=== PATIENT | male | born 1950 | race Caucasian/White ===

== ENCOUNTER 2022-01-10 09:17 | Outpatient (CLI) | payer MEDICARE, OTHER ==
[2022-01-10 09:55] LABS: ALT ALANINE AMINOTRANSFERASE 24 IU/L (10-60); AST ASPARTATE AMINOTRANSFERASE 22 IU/L (10-42); CHOL/HDL RATIO 1.8 (<5.0); CHOLESTEROL 120 mg/dL; CK- CREATINE KINASE 72 IU/L (22-269); HDL CHOLESTEROL 68 mg/dL; LDL CHOLESTEROL,CALCULATED 40 mg/dL; LDL CHOLESTEROL,DIRECT 34 mg/dL; LDL/HDL RATIO 0.6 (<3.6); TRIGLYCERIDES 60 mg/dL; VLDL CHOLESTEROL 12 mg/dL
== END 2022-01-10 09:18 | disposition home or self-care (01) ==
LOC: LAB 09:17
PROVIDERS: ATTEND Internal Medicine Cardiovascular Disease
DX: E78.5 Hyperlipidemia, unspecified (principal)
CPT/HCPCS: 36415; 80061; 82550; 83721; 84450; 84460

== ENCOUNTER 2022-02-02 13:42 | Outpatient (CLI) | payer MEDICARE, OTHER ==
[2022-02-02 14:03] LABS: CALCIUM 9.5 mg/dL (8.5-10.3); CREATININE 1.1 mg/dL (0.6-1.2); POTASSIUM 4.5 mmol/L (3.5-5.0)
== END 2022-02-02 13:43 | disposition home or self-care (01) ==
LOC: LAB 13:42
PROVIDERS: ATTEND Internal Medicine Cardiovascular Disease
DX: I71.4 Abdominal aortic aneurysm, without rupture (principal); I25.10 Atherosclerotic heart disease of native coronary artery without angina pectoris; I10 Essential (primary) hypertension; E78.5 Hyperlipidemia, unspecified
CPT/HCPCS: 36415; 80048

== ENCOUNTER 2022-07-07 10:12 | Outpatient (CLI) | payer MEDICARE, OTHER ==
[2022-07-07 10:43] LABS: ALBUMIN 4.7 g/dL (3.2-5.5); ALKALINE PHOSPHATASE 61 IU/L (42-121); ALT ALANINE AMINOTRANSFERASE 28 IU/L (10-60); AST ASPARTATE AMINOTRANSFERASE 32 IU/L (10-42); BILIRUBIN,DIRECT 0.2 mg/dL (0.1-0.5); BILIRUBIN,TOTAL 1.2 mg/dL (0.2-1.0); CHOL/HDL RATIO 1.7 (<5.0); CHOLESTEROL 137 mg/dL; HDL CHOLESTEROL 79 mg/dL; LDL CHOLESTEROL,CALCULATED 45 mg/dL; LDL/HDL RATIO 0.6 (<3.6); TOTAL PROTEIN 7.6 g/dL (6.7-8.2); TRIGLYCERIDES 65 mg/dL; VLDL CHOLESTEROL 13 mg/dL
== END 2022-07-07 10:13 | disposition home or self-care (01) ==
LOC: LAB 10:12
PROVIDERS: ATTEND Family Medicine
DX: E78.5 Hyperlipidemia, unspecified (principal)
CPT/HCPCS: 36415; 80061; 80076; 83721